=== PATIENT | female | born 1980 | race Caucasian/White ===

== ENCOUNTER 2018-03-25 08:07 | Emergency (ER) | END 2018-03-25 11:26 | disposition home or self-care (01) ==

== ENCOUNTER 2018-07-11 18:32 | Emergency (ER) | END 2018-07-11 21:25 | disposition home or self-care (01) ==

== ENCOUNTER 2019-08-25 17:09 | Emergency (ER) | payer MEDICAID ==
[~2019-08-25] VITALS: Ht 162.6 cm; Wt 72.8 kg
[~2019-08-25 17:09] MED LIST: CEPH-443 PO; IBUP-1542 PO; IBUP-1561 PO; IPRA30SP NS; PSEU60TA21 PO
[2019-08-25 18:08] VITALS: BP 133/73; PULSE 65; RESP 18; Ht 162.6 cm; Wt 72.8 kg
[2019-08-25] MEDS ORDERED: ACETAMINOPHEN 325 MG TAB PO ONE (19:00)
[2019-08-25] MEDS ORDERED: CEPHALEXIN 500 MG CAP PO ONE (19:00)
== END 2019-08-25 19:17 | disposition home or self-care (01) ==
LOC: FTE 17:09
DX: R30.9 Painful micturition, unspecified (principal)
CPT/HCPCS: 81003; 81025; Z7502; Z7610; 99283